=== PATIENT | male | born 1980 | race Caucasian/White ===

== ENCOUNTER 2016-08-08 15:47 | Emergency (ER) | payer SELFPAY ==
[~2016-08-08] VITALS: Ht 180.3 cm; Wt 113.0 kg
[~2016-08-08 15:47] MED LIST: IBUP-232 PO; LORTA5 PO; PENI500T PO
[2016-08-08 15:49] VITALS: BP 150/83; PULSE 99; RESP 18; TEMP 97.4; O2SAT 97
--- NOTE | 2016-08-08 17:21 | PD ---
HPI Chief Complaint: ENT Complaint Time Seen by Provider: 17:01 Travel History International Travel<30 days: No Contact w/Intl Traveler<30days: No Traveled to known affect area: No History of Present Illness HPI 35-year-old male presents to the emergency room for evaluation of an irritating rash to his right exterior ear. Patient first noticed it 3-4 nights ago. States last night it got the most irritating. Describes discomfort as increasing pressure, "like somebody placed a marble under the skin." Patient denies inner ear pain, ear drainage, fever, chills, nausea, and vomiting. States he had something similar 2 years ago at which time he received oral antibiotics and it went away. FOR[facility]LY [facility] Past Medical History Medical History: Denies Significant Hx Asthma: No Autoimmune Disease: No COPD: No Musculoskeletal: Yes (chronic back pain) Tetanus Vaccination: Unknown Influenza Vaccination: No PNEUMOCCOCAL Vaccine (Year): 2 Social History Alcohol Use: Yes (~2-3 X WEEKLY) Tobacco Use: Yes (1 PPD) Substance Use: No Allergies-Medications (Allergen,Severity, Reaction): Coded Allergies: No Known Allergies (Verified , 08/08/16) Reported Meds & Prescriptions Reported Meds & Active Scripts Active Review of Systems Except as stated in HPI: all other systems reviewed are Neg Physical Exam Narrative GENERAL: Well-nourished, well-developed male in no acute distress. Afebrile. Ambulatory. SKIN: Focused skin assessment warm/dry. There are multiple raised, skin colored papules in the right posterior ear. Nontender to palpation. No erythema. No post auricular or preauricular lymphadenopathy. HEAD: Normocephalic. EYES: No scleral icterus. No injection or drainage. EARS: Bilateral pinnae and external canals appear within normal limits. Tympanic membranes not visualized due to bilateral cerumen impaction. NECK: Supple, trachea midline. No JVD or lymphadenopathy. CARDIOVASCULAR: Regular rate and rhythm without murmurs, gallops, or rubs. RESPIRATORY: Breath sounds equal bilaterally. No accessory muscle use. Data Data Last Documented VS Vital Signs Date Time Temp Pulse Resp B/P Pulse Ox O2 Delivery O2 Flow Rate FiO2 08/08/16 15:49 97.4 99 18 150/83 97 MDM Medical Decision Making Medical Screen Exam Complete: Yes Emergency Medical Condition: Yes Medical Record Reviewed: Yes Differential Diagnosis Folliculitis versus molluscum contagiosum versus shingles Narrative Course 35-year-old male presents to the emergency room for evaluation of irritating rash to the right posterior ear that has been presents 4 days. He denies pain or burning of the rash and states it feels like there is increased pressure. Denies ear pain or drainage. Patient denies systemic signs of infection. Vital signs stable. Physical exam shows several 1-3 mm skin colored papules to the right posterior ear. No surrounding lymphadenopathy. Nontender to palpation. No evidence of bacterial infection. I have my attending physician, Dr. Mcmahan, look at the rash to evaluate for shingles and he recommends treating it as folliculitis with Bactrim and Bactroban. Patient will be discharged with both and told to follow up with a primary care physician or return for worsening symptoms. He understands and agrees to plan. Diagnosis Primary Impression: Folliculitis Referrals: Primary Care Physician Patient Instructions: Folliculitis (ED), General Instructions Additional Instructions: Rest and drink plenty of fluids. Take Bactrim as directed, until gone. Apply mupirocin daily, for 7 days. Change razors. Follow-up with a primary care physician. Return to the emergency room for worsening symptoms. Scripts Mupirocin Topical (Bactroban Topical)2 % Cream1 Applic TOPICAL Q12HR #1 TUBE Ref 0 Prov:Hema Mcmahan MD 08/08/16 Sulfamethoxazole-Trimethoprim (Bactrim DS)800-160 Mg Tab1 Tab PO BID #6 TAB Ref 0 Prov:Hema Mcmahan MD 08/08/16 Disposition: 01 DISCHARGE HOME Condition: Stable Saba Roberto August 08, 2016 17:21
[2016-08-08] MEDS ORDERED: BACT800T5 PO (17:22)
[2016-08-08] MEDS ORDERED: MUPI2%T TOPICAL (17:22)
== END 2016-08-08 17:42 | disposition home or self-care (01) ==
LOC: PHEFT 15:47
DX: L73.9 Follicular disorder, unspecified (principal); F17.210 Nicotine dependence, cigarettes, uncomplicated
CPT/HCPCS: 99282